=== PATIENT | female | born 1980 | race Caucasian/White ===

== ENCOUNTER 2024-08-12 14:18 | Emergency (ER) | payer BC, OTHER ==
[2024-08-12] MEDS ORDERED: Sodium Chloride 0.9% 1,000 ML ONE (15:14)
[2024-08-12 15:45] LABS: ALT (SGPT) 16 U/L (8-55); AST (SGOT) 15 U/L (5-34); Albumin 3.9 g/dL (3.5-5.0); Alkaline Phosphatase 74 U/L (40-110); Anion Gap 14 mmol/L (10-20); BUN (Urea Nitrogen) 14 mg/dL (7.0-18.7); Bilirubin, Total 0.4 mg/dL (0.2-1.2); Calc. Creatinine Clearance 0 mL/min (70-130); Calcium 9.5 mg/dL (7.8-10.44); Carbon Dioxide 23 mmol/L (22-29); Chloride 105 mmol/L (98-107); Estimated GFR 103; Globulin 3.7 g/dL (2.4-3.5); Glucose 108 mg/dL (70-105); Lipase 47 U/L (8-78); Potassium 3.6 mmol/L (3.5-5.1); Protein, Total 7.6 g/dL (6.0-8.3); Sodium 138 mmol/L (136-145)
[2024-08-12 15:51] LABS: Troponin I Less than 0.010 ng/mL (< 0.028)
[2024-08-12 16:02] LABS: Hematocrit 39.4 % (36.0-47.0); Hemoglobin 13.3 g/dL (12.0-16.0); Mean Corpuscular HGB CONC 33.7 g/dL (32.0-36.0); Mean Corpuscular Hemoglobin 30.4 pg (27.0-31.0); Mean Corpuscular Volume 90.1 fl (78.0-98.0); Mean Platelet Volume 6.9 fL (7.4-10.4); Platelet Count 404 10x3/uL (130-400); RBC Distribution Width 11.9 % (11.5-14.5); Red Blood Cell (RBC) Count 4.37 mill/uL (4.20-5.40); White Blood Cell (WBC) Count 11.7 10x3/uL (4.8-10.8)
[2024-08-12 16:03] LABS: MDiff Complete? YES
[2024-08-12] MEDS ORDERED: Gabapentin 300 MG CAP ONE (17:13)
[2024-08-12] MEDS ORDERED: Promethazine 25 MG TAB ONE (17:14)
[2024-08-12 18:13] LABS: Band 1 % (5-11); Eosinophils 1 % (0-10); Lymphocytes 50 % (21-51); Monocytes 2 % (0-10); Neutrophil 46 % (42-75)
[2024-08-12 18:14] LABS: Platelet Adequacy Comment Appears Adequate; RBC Morph Comment Within Normal Limits
== END 2024-08-12 17:32 | disposition home or self-care (01) ==
LOC: NAV ERS 14:18
DX: R07.9 Chest pain, unspecified (principal); R11.0 Nausea; F17.210 Nicotine dependence, cigarettes, uncomplicated
CPT/HCPCS: 71046; 80053; 83690; 84443; 84484; 85025; 87081; 87428; 87430; 93005; J7030; Q0169